=== PATIENT | male | born 1950 | race Caucasian/White ===

== ENCOUNTER → 2016-07-09 | Outpatient (CLI) | payer MEDICARE | LOC: KOH-I 11:04 | DX: M25.511 Pain in right shoulder (principal); S42.291A Other displaced fracture of upper end of right humerus, initial encounter for closed fracture; S42.141A Displaced fracture of glenoid cavity of scapula, right shoulder, initial encounter for closed fracture; S43.431A Superior glenoid labrum lesion of right shoulder, initial encounter; M75.101 Unspecified rotator cuff tear or rupture of right shoulder, not specified as traumatic | CPT/HCPCS: 73221 ==

== ENCOUNTER → 2020-05-05 | Outpatient (CLI) | payer MEDICARE ==
[~2020-05-05] MED LIST: ASPIR-LOW81 MG PO; ATORVASTATIN CA40 MG PO; FLONASE 0.05% N16 GM; HYDROCHLOROTHIA25 MG PO; LOPRESSOR 25 MG25 MG PO; NORVASC 5 MG TAB5 MG PO; PHYSICIANS1000 MCG/1 INJ; PLAVIX 75 MG TA75 MG PO; PROSCAR5 MG PO; PROTONIX40 MG PO; PROVENTIL HFA6.7 GM INH; ZESTRIL40 MG PO; ZYRTEC10 MG PO
== END ==
LOC: EXRD 07:30
DX: R10.9 Unspecified abdominal pain (principal); N28.1 Cyst of kidney, acquired; R93.422 Abnormal radiologic findings on diagnostic imaging of left kidney; R93.2 Abnormal findings on diagnostic imaging of liver and biliary tract
CPT/HCPCS: 76775

== ENCOUNTER → 2021-05-08 | Outpatient (CLI) | payer MEDICARE | LOC: EXRD 13:10 | DX: N28.1 Cyst of kidney, acquired (principal) | CPT/HCPCS: 76775 ==

== ENCOUNTER 2021-12-16 10:26 | Emergency (ER) | payer MEDICARE ==
[2021-12-16 11:37] LABS: HEMOGLOBIN 15.3 gm/dl (14.0-17.5); RED BLOOD COUNT 4.85 M/UL (4.20-5.50); WHITE BLOOD COUNT 7.9 K/UL (4.5-11.0)
[2021-12-16 12:04] LABS: BUN/CREATININE RATIO 20 (0-10)
[2021-12-16] MEDS ORDERED: ZITHROMAX250 MG PO (15:04)
[2021-12-16] MEDS ORDERED: PERCOCET 5/325 T1 EA PO (15:04)
[2021-12-16] MEDS ORDERED: DECADRON4 MG PO (15:04)
== END 2021-12-16 16:00 | disposition home or self-care (01) ==
LOC: ER1 10:26
PROVIDERS: Family Medicine
DX: M51.9 Unspecified thoracic, thoracolumbar and lumbosacral intervertebral disc disorder (principal); R05.9 Cough, unspecified; I25.10 Atherosclerotic heart disease of native coronary artery without angina pectoris; E11.9 Type 2 diabetes mellitus without complications; E78.5 Hyperlipidemia, unspecified; K22.70 Barrett's esophagus without dysplasia; K44.9 Diaphragmatic hernia without obstruction or gangrene; I11.9 Hypertensive heart disease without heart failure; Z95.5 Presence of coronary angioplasty implant and graft; Z90.49 Acquired absence of other specified parts of digestive tract; Z79.899 Other long term (current) drug therapy; Z79.84 Long term (current) use of oral hypoglycemic drugs; Z79.02 Long term (current) use of antithrombotics/antiplatelets
CPT/HCPCS: 36600; 71045; 80053; 82550; 82553; 82803; 83880; 84484; 85025; 85379; 93005; 99284